=== PATIENT | female | born 1990 | race Native Hawaiian/Other Pacific Islander ===

== ENCOUNTER 2017-12-26 21:11 | Emergency (ER) | payer SELFPAY ==
[~2017-12-26] VITALS: Ht 165.1 cm; Wt 76.0 kg
[2017-12-26 21:27] VITALS: BP 132/72; PULSE 77; RESP 16; TEMP 97.8; O2SAT 99
[2017-12-26] MEDS ORDERED: HYDR2.5%T RECTAL (21:51)
--- NOTE | 2017-12-26 21:51 | PD ---
HPI Chief Complaint: Bleeding Time Seen by Provider: 21:41 Travel History International Travel<30 days: No Contact w/Intl Traveler<30days: [place] Traveled to: [place] Traveled to known affect area: No History of Present Illness HPI 27-year-old female complains of painful hemorrhoid to rectum with bleeding. Patient states that his symptoms started yesterday. Patient states the pain is burning pain localized the rectum area. Patient states that she saw some blood in the tissue when she clean her buttock. Patient denies any abdominal pain. Patient denies any fever chills. Patient has history of chronic constipation. on a scale from 1-10 the pain is a 7. PFSH Past Medical History Immunizations Current: Yes Tetanus Vaccination: < 5 Years Influenza Vaccination: Yes ?: Unknown LMP: 11/25/17 Social History Alcohol Use: No Tobacco Use: No Substance Use: No Allergies-Medications (Allergen,Severity, Reaction): Coded Allergies: No Known Allergies (Unverified Adverse Reaction, Unknown, 12/26/17) Reported Meds & Prescriptions Reported Meds & Active Scripts Active No Active Prescriptions or Reported Medications Review of Systems General / Constitutional: No: Fever Eyes: No: Visual changes HENT: No: Headaches Cardiovascular: No: Chest Pain or Discomfort Respiratory: No: Shortness of Breath Gastrointestinal: No: Abdominal Pain Genitourinary: No: Dysuria Musculoskeletal: No: Pain Skin: No Rash Neurologic: No: Weakness Psychiatric: No: Depression Endocrine: No: Polydipsia Hematologic/Lymphatic: No: Easy Bruising Physical Exam Narrative GENERAL: Well-nourished, well-developed patient. SKIN: Focused skin assessment warm/dry. HEAD: Normocephalic. EYES: No scleral icterus. No injection or drainage. NECK: Supple, trachea midline. No JVD or lymphadenopathy. CARDIOVASCULAR: Regular rate and rhythm without murmurs, gallops, or rubs. RESPIRATORY: Breath sounds equal bilaterally. No accessory muscle use. GASTROINTESTINAL: Abdomen soft, non-tender, nondistended. MUSCULOSKELETAL: No cyanosis, or edema. BACK: Nontender without obvious deformity. No CVA tenderness. Rectal exam reveals external hemorrhoid. No thrombosis or active bleeding. Data Data Last Documented VS Vital Signs Date Time Temp Pulse Resp B/P (MAP) Pulse Ox O2 Delivery O2 Flow Rate FiO2 12/26/17 21:27 97.8 77 16 132/72 (92) 99 [facility] Medical Decision Making Medical Screen Exam Complete: Yes Emergency Medical Condition: Yes Differential Diagnosis Differential diagnosis including internal hemorrhoid, external hemorrhoid, GI bleed. Narrative Course 37-year-old female with painful hemorrhoid and occasional bleeding. Diagnosis Primary Impression: External hemorrhoid Patient Instructions: General Instructions Additional Instructions: Anusol HC cream as directed. Sitz bath. [id number]-sly-blstfey Tucks pads. Follow- up with personal physician and colorectal surgeon. Return if worse. Med/Other Pt SpecificInfo: Prescription(s) given Scripts Hydrocortisone Rectal (Anusol-Hc Rectal) 2.5% Cream 1 APPLIC RECTAL Q4-6H Y for ITCHING/INFLAMMATION, #30 GM 0 Refills Prov: Deion Flynn MD 12/26/17 Disposition: 01 DISCHARGE HOME Condition: Stable Deion Flynn MD Dec 26, 2017 21:51
== END 2017-12-26 22:14 | disposition home or self-care (01) ==
LOC: NEPD 21:11
DX: K64.4 Residual hemorrhoidal skin tags (principal); K59.09 Other constipation
CPT/HCPCS: 99284